=== PATIENT | female | born 1985 | race Caucasian/White ===

== ENCOUNTER 2016-10-21 15:25 | Emergency (ER) | payer MEDICAID, OTHER ==
[~2016-10-21] VITALS: Ht 154.9 cm; Wt 95.3 kg
[2016-10-21 16:16] LABS: Basophils # (auto) 0.1 uL; Basophils % (auto) 0.5 % (0.0-2.0); DEFINITIVE VIEW TRANSMISSION; Eosinophils # (auto) 0.2 uL; Eosinophils % (auto) 1.9 % (0.0-7.0); Hematocrit 38.8 % (36.0-46.0); Hemoglobin 12.4 g/dL (12.2-16.2); Lymphocytes # (auto) 2.4 uL; Lymphocytes % (auto) 21.3 % (10.0-50.0); Mean Corpuscular Hemoglobin 25.1 pg (28.0-32.0); Mean Corpuscular Hgb Conc. 31.8 g/dL (32.0-36.0); Mean Corpuscular Volume 78.9 fL (80.0-100.0); Mean Platelet Volume 10.7 fL (7.4-10.4); Monocytes # (auto) 0.6 uL; Monocytes % (auto) 5.4 % (0.0-12.0); Neutrophils # (auto) 8.1 uL; Neutrophils % (auto) 70.9 % (37.0-80.0); Platelet Count (auto) 265 10^3/uL (140-450); Red Cell Distribution Width 17.8 % (11.6-16.0); White Blood Cell 11.5 10^3/uL (4.4-10.8)
[2016-10-21 16:33] LABS: Albumin 3.5 g/dL (3.4-5.0); BUN/Creatinine Ratio 17.1; Calcium 8.7 mg/dL (8.5-10.1); Magnesium 2.1 mg/dL (1.6-2.6); Potassium 3.4 mmol/L (3.5-5.1)
[2016-10-21 16:36] LABS: Bilirubin, Total 0.4 mg/dL (0.2-1.0); Total Protein 8.2 g/dL (6.4-8.2)
[2016-10-21 21:03] VITALS: BP 176/86
== END 2016-10-21 21:11 | disposition home or self-care (01) ==
LOC: ER 15:30
DX: I10 Essential (primary) hypertension (principal); Z88.0 Allergy status to penicillin; Z88.2 Allergy status to sulfonamides; R42 Dizziness and giddiness
CPT/HCPCS: 36415; 70450; 80053; 81025; 83735; 84484; 84702; 85025; 85049; 93005